=== PATIENT | female | born 1985 | race African-American/Black ===

== ENCOUNTER 2018-02-18 04:39 | Emergency (ER) | payer OTHER ==
[~2018-02-18] VITALS: Ht 162.6 cm; Wt 166.5 kg
--- NOTE | ~2018-02-18 | EKG ---
[place] [address] [facility] [place] [address] ELECTROCARDIOGRAM REPORT Name: BEE TURNER [facility] [id number] Admission: 02/18/18 Attend Phys: Discharge: 02/18/18 Date of : 83 Report #: [id number] THIS REPORT FOR: //name// [facility] ED Test Date: 2018-02-18 Test Time: 05:07:27 Pat Name: BEE TURNER Department: Room: Gender: F Python Programmer: : 1985 Requested By: Daina Harrington Order Number: [id number] MD: Young Esteban Measurements Intervals [place] Rate: 76 P: 83 MN: 204 QRS: 60 QRSD: 101 T: 14 QT: 384 QTc: 432 Interpretive Statements Sinus rhythm Borderline prolonged MN interval Minimal ST depression, inferior leads Compared to ECG 11/26/2005 01:11:58 ST (T wave) deviation now present Electronically Signed On 02-18-2018 10:14:43 CDT by Young Esteban [email or web address] <ELECTRONICALLY SIGNED> By: Young Esteban MD, [facility] 02/18/18 [id number] Young Esteban MD, [facility] /EPI
[~2018-02-18 04:39] MED LIST: COLACE100 MG PO; IBUPROFEN 400400 M1 PO; IBUPROFEN 600600 M1 PO; IRON325 PO; LOESTRIN1 EAC1 PO; LUTERA1 EACH PO; TESSALON200 MG PO; TRAMADOL 50 MG50 MG PO
[2018-02-18] MEDS ORDERED: HYDROCHLOROTHIA25 M2 PO (04:59)
[2018-02-18] MEDS ORDERED: SINGULAIR 10 MG10 M1 PO (04:59)
[2018-02-18 05:29] LABS: ABSOLUTE NEUTROPHILS 6.2 thou/uL (1.4-8.2); BASOPHILS 0.7 % (0.0-2.0); EOSINOPHILS 4.1 % (0.0-3.0); HEMATOCRIT 39.9 % (37.0-47.0); HEMOGLOBIN 13.4 gm/dL (12.0-15.0); LYMPHOCYTES 32.8 % (24.0-44.0); MCHC 33.6 g/dL (28.0-37.0); MCV 83.3 fL (80.0-100.0); MONOCYTES 9.1 % (1.0-8.0); PLATELET COUNT 361 thou/uL (150-400); POLYS 53.3 % (36.0-66.0); RBC 4.79 mil/uL (4.20-5.00); RDW 14.6 % (10.5-14.5); WBC 11.6 thou/uL (4.0-11.0)
[2018-02-18 05:45] LABS: CALCIUM 9.4 mg/dL (8.5-10.1); CREATININE 0.7 mg/dL (0.6-1.0); POTASSIUM 3.5 mmol/L (3.5-5.1)
== END 2018-02-18 05:50 | disposition home or self-care (01) ==
LOC: ER 04:39
PROVIDERS: Student in an Organized Health Care Education/Training Program
DX: F41.9 Anxiety disorder, unspecified (principal); R00.2 Palpitations; Z87.891 Personal history of nicotine dependence

== ENCOUNTER 2018-09-17 18:53 | Emergency (ER) | payer OTHER ==
[~2018-09-17] VITALS: Ht 167.6 cm; Wt 147.4 kg
[~2018-09-17 18:53] MED LIST changes: +HYDROCHLOROTHIA25 M2 PO; +SINGULAIR 10 MG10 M1 PO
[2018-09-17 19:35] LABS: URINE BLOOD TRACE (Negative); URINE CLARITY CLEAR; URINE COLOR YELLOW; URINE GLUCOSE-RANDOM* NEGATIVE (Negative); URINE KETONES 3+ (Negative); URINE LEUKOCYTES-REFLEX NEGATIVE (Negative); URINE NITRITE-REFLEX NEGATIVE (Negative); URINE PROTEIN (DIPSTICK) 1+ (Negative); URINE SPECIFIC GRAVITY >= 1.030 (1.005-1.035); URINE UROBILINOGEN 0.2 E.U./dl (0.2-1.0)
[2018-09-17 19:42] LABS: ICTOTEST (BILI CONFIRMATORY) Negative (Negative); URINE BILIRUBIN NEGATIVE (Negative); URINE REDUCING SUBSTANCE NEGATIVE
[2018-09-17 20:03] LABS: CASTS None Seen /LPF (None Seen); MUCUS >6 Heavy strn/LPF (None Seen); SQUAMOUS >10 Many /LPF (0-3)
[2018-09-17 20:04] LABS: BACTERIA-REFLEX 1-9 Few /HPF (None Seen); CRYSTALS None Seen /LPF (None Seen); URINE RBC None Seen /HPF (0-2); URINE WBC-REFLEX 0-5 Rare /HPF (0-5)
[2018-09-17 20:06] LABS: ABSOLUTE NEUTROPHILS 6.2 thou/uL (1.4-8.2); BASOPHILS 0.7 % (0.0-2.0); EOSINOPHILS 2.5 % (0.0-3.0); HEMATOCRIT 40.2 % (37.0-47.0); HEMOGLOBIN 13.4 gm/dL (12.0-15.0); LYMPHOCYTES 24.8 % (24.0-44.0); MCH 27.6 pg (26.0-34.0); MCHC 33.2 g/dL (28.0-37.0); MCV 83.2 fL (80.0-100.0); MONOCYTES 8.7 % (1.0-8.0); PLATELET COUNT 301 thou/uL (150-400); POLYS 63.3 % (36.0-66.0); RBC 4.83 mil/uL (4.20-5.00); WBC 9.7 thou/uL (4.0-11.0)
[2018-09-17 20:15] LABS: CALCIUM 9.4 mg/dL (8.5-10.1); CREATININE 0.7 mg/dL (0.6-1.0); POTASSIUM 4.4 mmol/L (3.5-5.1)
[2018-09-17] MEDS ORDERED: OMEPRAZOLE20 M1 PO (20:48)
[2018-09-17] MEDS ORDERED: PERCOCET 7.5-31 EACH PO (20:49)
[2018-09-17] MEDS ORDERED: ZOFRAN ODT4 MG PO (20:59)
[2018-09-17 23:15] VITALS: BP 126/72
== END 2018-09-17 23:15 | disposition home or self-care (01) ==
LOC: ER 18:53
PROVIDERS: Student in an Organized Health Care Education/Training Program
DX: E86.0 Dehydration (principal); Z87.891 Personal history of nicotine dependence; Z88.6 Allergy status to analgesic agent

== ENCOUNTER 2019-02-26 18:50 | Emergency (ER) | payer OTHER ==
[~2019-02-26] VITALS: Ht 162.6 cm; Wt 132.0 kg
[~2019-02-26 18:50] MED LIST changes: +OMEPRAZOLE20 M1 PO; +PERCOCET 7.5-31 EACH PO; +ZOFRAN ODT4 MG PO
[2019-02-26 22:53] LABS: ABSOLUTE NEUTROPHILS 4.3 thou/uL (1.4-8.2); BASOPHILS 0.9 % (0.0-2.0); EOSINOPHILS 3.1 % (0.0-3.0); HEMATOCRIT 37.4 % (37.0-47.0); HEMOGLOBIN 12.2 gm/dL (12.0-15.0); LYMPHOCYTES 37.7 % (24.0-44.0); MCHC 32.6 g/dL (28.0-37.0); MCV 88.9 fL (80.0-100.0); MONOCYTES 7.4 % (1.0-8.0); PLATELET COUNT 301 thou/uL (150-400); POLYS 50.9 % (36.0-66.0); RBC 4.21 mil/uL (4.20-5.00); RDW 14.7 % (10.5-14.5); WBC 8.5 thou/uL (4.0-11.0)
[2019-02-26 22:56] LABS: ANION GAP 7 mmol/L (7-16); BUN 9 mg/dL (7-18); CALCIUM 8.7 mg/dL (8.5-10.1); CHLORIDE 106 mmol/L (98-107); CO2 27 mmol/L (21-32); CREATININE 0.7 mg/dL (0.6-1.0); GLUCOSE 80 mg/dL (74-106); POTASSIUM 3.9 mmol/L (3.5-5.1); SODIUM 140 mmol/L (136-145)
[2019-02-26 23:00] VITALS: BP 132/63
[2019-02-26 23:04] LABS: TROPONIN-I <0.06 ng/mL (<0.06)
--- NOTE | 2019-02-27 08:04 | EKG ---
[place] [address] [employer] [facility] [place] [address] ELECTROCARDIOGRAM REPORT Name: BEE TURNER [facility] [id number] Admission: 02/26/19 Attend Phys: Discharge: 02/26/19 Date of : 83 Report #: [id number] THIS REPORT FOR: //name// [facility] ED Test Date: 2019-02-26 Test Time: 18:48:30 Pat Name: BEE TURNER Department: Room: Gender: F Swimming Coach Or Instructor: RONA : 1985 Requested By: Salvatore Lagos Order Number: [id number] MD: Young Esteban Measurements Intervals [place] Rate: 74 P: 46 NH: 188 QRS: 57 QRSD: 95 T: 26 QT: 376 QTc: 418 Interpretive Statements Sinus rhythm Normal tracing Compared to ECG 02/18/2018 05:07:27 No significant change was found Electronically Signed On 02-27-2019 8:04:08 CDT by Young Esteban [email or web address] <ELECTRONICALLY SIGNED> By: Young Esteban MD, [facility] 02/27/19 [id number] Young Esteban MD, [facility] /EPI
== END 2019-02-26 23:30 | disposition home or self-care (01) ==
LOC: ER 18:50
PROVIDERS: Emergency Medicine
DX: R07.89 Other chest pain (principal); F41.9 Anxiety disorder, unspecified; I10 Essential (primary) hypertension; Z98.890 Other specified postprocedural states; Z88.6 Allergy status to analgesic agent; Z88.5 Allergy status to narcotic agent; Z87.891 Personal history of nicotine dependence

== ENCOUNTER 2019-10-06 16:40 | Emergency (ER) | payer OTHER ==
[~2019-10-06] VITALS: Ht 162.6 cm; Wt 130.2 kg
[2019-10-06 17:43] LABS: URINE BILIRUBIN NEGATIVE (Negative); URINE BLOOD NEGATIVE (Negative); URINE CLARITY SL CLOUDY; URINE COLOR YELLOW; URINE GLUCOSE-RANDOM* NEGATIVE (Negative); URINE KETONES NEGATIVE (Negative); URINE LEUKOCYTES-REFLEX NEGATIVE (Negative); URINE NITRITE-REFLEX NEGATIVE (Negative); URINE PROTEIN (DIPSTICK) NEGATIVE (Negative); URINE SPECIFIC GRAVITY 1.025 (1.005-1.035); URINE UROBILINOGEN 0.2 E.U./dl (0.2-1.0)
[2019-10-06 18:41] LABS: ABSOLUTE NEUTROPHILS 4.4 thou/uL (1.4-8.2); BASOPHILS 0.6 % (0.0-2.0); EOSINOPHILS 2.4 % (0.0-3.0); HEMOGLOBIN 13.2 gm/dL (12.0-15.0); LYMPHOCYTES 38.6 % (24.0-44.0); MCH 30.1 pg (26.0-34.0); MCV 91.2 fL (80.0-100.0); MONOCYTES 7.1 % (1.0-8.0); PLATELET COUNT 323 thou/uL (150-400); POLYS 51.3 % (36.0-66.0); RBC 4.39 mil/uL (4.20-5.00); RDW 13.8 % (10.5-14.5); WBC 8.6 thou/uL (4.0-11.0)
[2019-10-06 18:48] LABS: ANION GAP 6 mmol/L (7-16); BUN 12 mg/dL (7-18); CALCIUM 8.2 mg/dL (8.5-10.1); CHLORIDE 105 mmol/L (98-107); CO2 27 mmol/L (21-32); CREATININE 0.7 mg/dL (0.6-1.0); GLUCOSE 80 mg/dL (74-106); POTASSIUM 4.3 mmol/L (3.5-5.1); SODIUM 138 mmol/L (136-145)
[2019-10-06 18:55] LABS: ALBUMIN 3.4 g/dL (3.4-5.0); DIRECT BILIRUBIN < 0.1 mg/dL (<0.1-0.2); SGOT 19 U/L (15-37); SGPT 26 U/L (30-65); TOTAL BILIRUBIN 0.2 mg/dL (<0.1-1.0); TOTAL PROTEIN 7.7 g/dL (6.4-8.2)
[2019-10-06] MEDS ORDERED: FLAGYL500 M1 PO (18:58)
[2019-10-06 20:17] VITALS: BP 144/78
== END 2019-10-06 20:20 | disposition home or self-care (01) ==
LOC: ER 16:40
PROVIDERS: Emergency Medicine
DX: N76.0 Acute vaginitis (principal); B96.89 Other specified bacterial agents as the cause of diseases classified elsewhere; R10.2 Pelvic and perineal pain; R35.0 Frequency of micturition; F41.9 Anxiety disorder, unspecified; I10 Essential (primary) hypertension; Z95.5 Presence of coronary angioplasty implant and graft; Z98.890 Other specified postprocedural states; Z98.84 Bariatric surgery status; Z87.42 Personal history of other diseases of the female genital tract; Z87.891 Personal history of nicotine dependence

== ENCOUNTER 2020-08-16 11:18 | Emergency (ER) | payer OTHER ==
[~2020-08-16] VITALS: Ht 162.6 cm; Wt 131.5 kg
[~2020-08-16 11:18] MED LIST changes: +FLAGYL500 M1 PO
[2020-08-16 12:07] LABS: URINE BILIRUBIN NEGATIVE (Negative); URINE BLOOD NEGATIVE (Negative); URINE CLARITY CLEAR; URINE COLOR YELLOW; URINE GLUCOSE-RANDOM* NEGATIVE (Negative); URINE KETONES NEGATIVE (Negative); URINE LEUKOCYTES-REFLEX NEGATIVE (Negative); URINE NITRITE-REFLEX NEGATIVE (Negative); URINE PROTEIN (DIPSTICK) NEGATIVE (Negative); URINE UROBILINOGEN 0.2 E.U./dl (0.2-1.0)
[2020-08-16] MEDS ORDERED: FLAGYL500 M1 PO (13:21)
[2020-08-16 13:44] VITALS: BP 112/55
== END 2020-08-16 13:44 | disposition home or self-care (01) ==
LOC: ER 11:18
PROVIDERS: Emergency Medicine
DX: N76.0 Acute vaginitis (principal); B96.89 Other specified bacterial agents as the cause of diseases classified elsewhere; I10 Essential (primary) hypertension; Z87.891 Personal history of nicotine dependence; Z88.5 Allergy status to narcotic agent; Z88.8 Allergy status to other drugs, medicaments and biological substances